=== PATIENT | male | born 1955 | race Caucasian/White ===

== ENCOUNTER 2021-08-12 07:00 | Day surgery (SDC) | payer OTHER ==
--- NOTE | 2021-08-12 08:03 | NUR ---
PT TO IMAGING.
--- NOTE | 2021-08-12 08:30 | NUR ---
Patient up to Ambulate independently. Gait steady. Discharge instructions reviewed with patient. Patient verbalizes understanding. Copy given to patient to take home. PT REQ TO WALK OUT. PT ABLE TO GIVE SELF RIDE HOME.
--- NOTE | 2021-08-12 08:30 | NUR ---
TEST CANCELLED BY RADIOLOGIST DUE TO CALCIUM BUILD UP.
== END 2021-08-12 08:30 | disposition home or self-care (01) ==
LOC: ORD 07:00 → ORSCMMR 07:00 → CT 07:00 → ORD 07:30 → ORSCMMR 07:30 → CT 08:00 → ORSCMMR 08:30
DX: R07.9 Chest pain, unspecified (principal); I10 Essential (primary) hypertension; E78.5 Hyperlipidemia, unspecified; F17.200 Nicotine dependence, unspecified, uncomplicated; K21.9 Gastro-esophageal reflux disease without esophagitis; Z88.5 Allergy status to narcotic agent; Z88.8 Allergy status to other drugs, medicaments and biological substances
CPT/HCPCS: 75571

== ENCOUNTER 2021-09-19 05:49 | Day surgery (SDC) | payer OTHER ==
[~2021-09-19] VITALS: Ht 182.9 cm; Wt 82.0 kg
[~2021-09-19 05:49] MED LIST: AFRIN15 M6; ASPIR 8181 M1 PO; ATOR80 PO; Budeprion Xl300 MG PO; CLON1 PO; CLOPIDOGREL75 MG PO; DEPO-TESTO200 MG/11 IM; FINA5 PO; HYDR10 PO; LOSARTAN POTAS100 M1 PO; METO25ER PO; MOME220I INH; PANT40 PO; TADA10TA PO; TORS10 PO; VERA240ER PO
--- NOTE | 2021-09-19 11:05 | NUR ---
PT AMBULATES TO RESTROOM AND BACK WITHOUT DIFF. R FEMORAL SITE REMAINS STABLE. NO BLEEDING OR HEMATOMA NOTED.
--- NOTE | 2021-09-19 11:17 | NUR ---
PT AND S/O VERBALIZES UNDERSTANDING WRITTEN AND VERBAL ORDERS. PT IV DC'D. CATH INTACT. PRESSURE DSG IN PLACE.PT DRESSES SELF WITHOUT DIFF. R FEMORAL SITE REMAINS CLEAR.
== END 2021-09-19 12:00 | disposition home or self-care (01) ==
LOC: MHTC 05:49
DX: I25.10 Atherosclerotic heart disease of native coronary artery without angina pectoris (principal); I10 Essential (primary) hypertension; E78.5 Hyperlipidemia, unspecified; K21.9 Gastro-esophageal reflux disease without esophagitis; Z88.5 Allergy status to narcotic agent; Z88.8 Allergy status to other drugs, medicaments and biological substances; Z87.891 Personal history of nicotine dependence
CPT/HCPCS: 76937; 93458; 99152; 99153; C1769; C1894; G0278; J0690; J1644; J2250; J3010; J7030; J7050; Q9967

== ENCOUNTER 2022-01-23 12:12 | Day surgery (SDC) | payer OTHER ==
[~2022-01-23] VITALS: Ht 182.9 cm; Wt 85.5 kg
[~2022-01-23 12:12] MED LIST changes: +ASPI325EC PO
== END 2022-01-23 14:14 | disposition home or self-care (01) ==
LOC: ORSCSDS 12:12
PROVIDERS: Student in an Organized Health Care Education/Training Program
PROC: 0DB68ZX Excision of Stomach, Via Natural or Artificial Opening Endoscopic, Diagnostic (ICD-10-PCS; principal; 2022-01-23 13:45)
PROC: 0DB98ZX Excision of Duodenum, Via Natural or Artificial Opening Endoscopic, Diagnostic (ICD-10-PCS; principal; 2022-01-23 13:45)
PROC: 0DB58ZX Excision of Esophagus, Via Natural or Artificial Opening Endoscopic, Diagnostic (ICD-10-PCS; principal; 2022-01-23 13:45)
DX: R13.10 Dysphagia, unspecified (principal); K21.9 Gastro-esophageal reflux disease without esophagitis; R10.13 Epigastric pain; I10 Essential (primary) hypertension; E78.5 Hyperlipidemia, unspecified; K29.70 Gastritis, unspecified, without bleeding; K44.9 Diaphragmatic hernia without obstruction or gangrene; Z87.891 Personal history of nicotine dependence; Z79.82 Long term (current) use of aspirin; Z79.899 Other long term (current) drug therapy
CPT/HCPCS: 88305; 88342; J2250; J2704

== ENCOUNTER 2022-01-28 06:53 | Emergency (ER) | payer OTHER ==
[~2022-01-28] VITALS: Ht 182.9 cm; Wt 83.9 kg
[2022-01-28] MEDS ORDERED: CHLO25B PO (07:48)
[2022-01-28] MEDS ORDERED: CEPH500 PO (09:46)
== END 2022-01-28 10:00 | disposition home or self-care (01) ==
LOC: ER 06:53
DX: S61.211A Laceration without foreign body of left index finger without damage to nail, initial encounter (principal); I10 Essential (primary) hypertension; E78.5 Hyperlipidemia, unspecified; W26.0XXA Contact with knife, initial encounter; Z79.899 Other long term (current) drug therapy
CPT/HCPCS: 90714; A9270

== ENCOUNTER 2022-11-25 08:25 | Observation (INO) | payer OTHER ==
[2022-11-25] VITALS (10 sets, daily range): BP systolic 123–153; BP diastolic 61–80
[~2022-11-25] VITALS: Ht 182.9 cm; Wt 88.3 kg
[~2022-11-25 08:25] MED LIST changes: +CEPH500 PO; +CHLO25B PO
[2022-11-25] MEDS ORDERED: AMLO10 PO (09:01)
[2022-11-25] MEDS ORDERED: SPIR25 PO (09:02)
[2022-11-25] MEDS ORDERED: TADA10TA (09:03)
[2022-11-25] MEDS ORDERED: Carvedilol12.5 MG PO (09:04)
[2022-11-25] MEDS ORDERED: CLOP75 PO (09:04)
[2022-11-25] MEDS ORDERED: ASPI81CH PO (09:04)
[2022-11-25 09:06] LABS: BASOPHILS ABSOLUTE AUTO 0.04 K/mm3 (0.00-0.23); BASOPHILS PERCENT AUTO 0 % (0-2); EOSINOPHILS PERCENT AUTO 1 % (0-6); Hematocrit 43.1 % (37.0-53.0); IMMATURE GRAN ABSOLUTE AUTO 0.02 K/mm3 (0.00-0.10); IMMATURE GRAN PERCENT AUTO 0 % (0-1); LYMPHOCYTES ABSOLUTE AUTO 0.95 K/mm3 (0.84-5.20); LYMPHOCYTES PERCENT AUTO 10 % (21-46); MONOCYTES ABSOLUTE AUTO 0.54 K/mm3 (0.16-1.47); MONOCYTES PERCENT AUTO 6 % (4-13); Mean Corpuscular HGB 32.6 pg (26.0-34.0); Mean Corpuscular HGB Conc 34.8 g/dL (31.5-36.5); Mean Corpuscular Volume 94 fL (80-100); NEUTROPHILS ABSOLUTE AUTO 7.62 K/mm3 (1.96-9.15); NEUTROPHILS PERCENT AUTO 82 % (41-73); Platelet Count 180 K/mm3 (150-400); RDW Coefficient Variation 12.8 % (11.7-14.2); RDW Standard Deviation 44.1 fL (35.1-46.3); White Blood Cell Count 9.27 K/mm3 (4.00-11.30)
[2022-11-25 09:30] LABS: Albumin, Blood 4.1 g/dL (3.4-5.0); Albumin/Globulin Ratio 1.3 (0.8-1.8); Bun/Creatinine Ratio 23.8 (12.0-20.0); Calcium, Blood 8.8 mg/dL (8.5-10.1); Creatinine, Blood 1.26 mg/dL (0.60-1.20); Globulin, Blood 3.2 g/dL (2.2-4.0); Total Protein, Blood 7.3 g/dL (6.4-8.2)
--- NOTE | 2022-11-25 16:22 | NUR ---
ASSUMPTION OF CARE PT TX TO PCU ROOM 4 FROM FROM ER. A&OX4. DENIES CP/ SOB. AMBULATES TO PCU BED, NO DIZZINESS NOTED. 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 SBP 120'S-150'S. PT CONCERNED ABOUT BECOMING HYPERTENSIVE WITHOUT HIS NIGHTLY ANTIHYPERTENSIVES. HOSPITALIST AND [employer] REPAIRER CONTACTED, AWAITING CARDIO CONSULT. LAST SBP IN THE 120'S, PT CONTINUES TO DENY CP, SOB, OR DIZZINESS. PT C/O SHOULDER PAIN FROM INJURY APPROXIMATELY A WEEK AGO WHILE WORKING OUTSIDE, PAIN ONLY PRESENT WITH USAGE OF L ARM. NO OTHER ACUTE CONCERNS.
[2022-11-26 03:25] VITALS: BP 144/72
[2022-11-26 04:10] LABS: Hematocrit 39.1 % (37.0-53.0); Hemoglobin 13.7 g/dL (13.5-17.5); Mean Corpuscular HGB 32.6 pg (26.0-34.0); Mean Corpuscular Volume 93 fL (80-100); Mean Platelet Volume 9.9 fL (9.1-12.4); Platelet Count 159 K/mm3 (150-400); RDW Coefficient Variation 12.9 % (11.7-14.2); RDW Standard Deviation 44.1 fL (35.1-46.3); White Blood Cell Count 6.43 K/mm3 (4.00-11.30)
[2022-11-26 04:37] LABS: Albumin, Blood 3.2 g/dL (3.4-5.0); Albumin/Globulin Ratio 1.1 (0.8-1.8); Bilirubin, Total 0.3 mg/dL (0.1-1.0); Bun/Creatinine Ratio 24.5 (12.0-20.0); Calcium, Blood 8.8 mg/dL (8.5-10.1); Creatinine, Blood 0.94 mg/dL (0.60-1.20); Globulin, Blood 2.8 g/dL (2.2-4.0); Potassium, Blood 3.6 mmol/L (3.5-5.5)
--- NOTE | 2022-11-26 05:03 | NUR ---
SHIFT SUMMARY PT IS ALERT AND ORIENTED X 4. VSS, HR NOTED TO BE SR 80'S PER TELE MONITORING. PT HAS REMAINED ON RA. HE HAS DENIED FEELINGS OF SOB, CHEST PAIN/PRESSURE, DIZZINESS/LIGHTHEADEDNESS. PAIN REPORTED IN LEFT SHOULDER, PLEASE SEE EMAR FOR PAIN MANAGEMENT. MAL WAS AT BEDSIDE AT BEGINNING OF SHIFT. DR. DUMONT WAS ALSO AT BEDSIDE. PT APPEARED TO BE SLEEPING COMFORTABLY IN BETWEEN PT CARE. NO ACUTE CHANGES NOTED. WILL CONTINUE TO MONITOR AND REPORT TO ONCOMING RN.
[2022-11-26 07:43] VITALS: BP 127/66
--- NOTE | 2022-11-26 10:02 | NUR ---
UPDATE DC INSTRUCTIONS PROVIDED TO PT. PT EDUCATED ON MEDICATION CHANGES. ALL QUESTIONS ANSWERED. PT TAKEN OUT WITH SPOUSE.
== END 2022-11-26 10:04 | disposition home or self-care (01) ==
LOC: ER 08:25 → PCU 12:48
PROVIDERS: Emergency Medicine; ADMIT Internal Medicine
DX: R00.1 Bradycardia, unspecified (principal); I35.0 Nonrheumatic aortic (valve) stenosis; I10 Essential (primary) hypertension; K21.9 Gastro-esophageal reflux disease without esophagitis; I25.10 Atherosclerotic heart disease of native coronary artery without angina pectoris; Z95.5 Presence of coronary angioplasty implant and graft; Z87.891 Personal history of nicotine dependence; Z88.5 Allergy status to narcotic agent; Z88.8 Allergy status to other drugs, medicaments and biological substances; Z79.82 Long term (current) use of aspirin; Z79.899 Other long term (current) drug therapy
CPT/HCPCS: 36415; 71046; 80053; 83690; 84484; 85025; 85027; 93005; 93010; 96360; 99285-25; A9270; G0378; J7040